=== PATIENT | male | born 1975 | race Caucasian/White ===

== ENCOUNTER → 2019-12-20 09:30 | Outpatient (CLI) | payer OTHER, SELFPAY ==
--- NOTE | 2019-12-20 09:31 | US_ITS ---
STUDY: ABDOMINAL ULTRASOUND - RIGHT UPPER QUADRANT REASON FOR VISIT: Male, 44 years old RUQ PAIN ON AND OFF COUPLE YEARS TECHNIQUE: Ultrasound evaluation of the right upper quadrant was performed with real-time and static silva-scale imaging. TECHNICAL QUALITY: Adequate. COMPARISON: None. FINDINGS: Liver: The liver measures 17.0 cm. There is increased echogenicity consistent with fatty infiltration. The bile ducts are within normal limits. There is hepatic color flow. The direction of portal flow is hepatopetal. There is no demonstrated mass lesion. Gallbladder: Normal distended gallbladder. The gallbladder wall measures 2.3 mm. There is a negative sonographic Kearns''s sign. There is no pericholecystic fluid. There are no gallstones. Common Bile Duct (C.B.D.): The common bile duct measures 6.8 mm. Pancreas: Normal size of the head, body of the pancreas. The tail portion was obscured due to overlying bowel gas. There is normal echogenicity of the pancreas. There is no demonstrated pancreatic mass or cyst. Right Kidney: Normal size of the right kidney. The right kidney measures 12.7 cm x 7 cm by 6.2 cm. Normal renal cortex. The right cortex measures 1.8 cm. There is no demonstrated renal mass or cyst. There is no right hydronephrosis. US/Gallbladder IMPRESSION: Fatty infiltration of the liver. Electronically Signed: Oleg Morillo, at 11:01 EST , Service support ,
== END ==
LOC: US 09:30
PROVIDERS: PCP Internal Medicine; Referring Provider Internal Medicine; Visit Provider Internal Medicine
DX: R10.11 Right upper quadrant pain (principal)
CPT/HCPCS: 76705

== ENCOUNTER 2020-01-05 06:49 | Emergency (ER) | payer OTHER, SELFPAY ==
[2020-01-05 06:50] VITALS: BP 139/90; PULSE 86; RESP 20; TEMP 36.9; O2SAT 98; BMI 38.5
--- NOTE | 2020-01-05 07:19 | RAD_ITS ---
STUDY: X-RAY CHEST REASON FOR EXAM: Male, 44 years old. CHEST PAIN, intermittent but hasn''t gone away since last night TECHNIQUE: 1 view COMPARISON: 03/20/2011 FINDINGS: The lungs are clear and expanded. There is no demonstrated pleural abnormality. Normal size heart. Normal mediastinum and rufus. Normal visualized pulmonary arteries. Normal visualized aortic arch and descending thoracic aorta. Normal visualized thoracic spine. Normal visualized ribs, clavicles, and shoulders. There is no demonstrated abnormality of the visualized soft tissue structures of the upper abdomen. RAD/Chest PA and Lateral IMPRESSION: Normal x-ray examination of the chest. No acute findings in the lungs Electronically Signed: Niko Berger MD at 7:52 EST Tel , Service support ,
--- NOTE | 2020-01-05 07:19 | EKG12_ITS ---
Test Reason : CP Blood Pressure : / mmHG Vent. Rate : 089 BPM Atrial Rate : 089 BPM P-R Int : 164 ms QRS Dur : 094 ms QT Int : 360 ms P-R-T Axes : 041 -23 035 degrees QTc Int : 438 ms Normal sinus rhythm Normal ECG Confirmed by DEAN ALONZO ([id number]), staff editor ROSY VINES ([id number]) on 01/10/2020 3:57:54 PM Referred By: KUNAL Confirmed By:DEAN ALONZO
--- NOTE | 2020-01-05 07:20 | ED.VIS.CHEST ---
History of Present Illness Chief Complaint: Chest Pain Informant: Patient Onset: Month(s) Activity at onset: - - more often at end of the workday/at night; never in the morning, like now Timing: Intermittent, Lasts - hrs Quality: Aching Location: - - lower mid-chest and epigastrium, radiating into mid-back Current Severity: Moderate Maximum Severity: Moderate Worsened By: Nothing, Eating - seems to get worse after I've had a couple meals or things to eat. Not Worsened By: Exertion, Movement of Arm, Movement of Torso, Palpation, Breathing, Coughing Narrative: Patient has been having the symptoms for months. Has been on Nexium 20 mg daily for a long time for reflux. States he gets these symptoms often at night and routinely takes Tums before going to bed every night, which she did last night but woke up with the discomfort persistent this morning which is unusual. He states usually in the morning when he wakes up, it is gone and does not return until later in the day but he does have it most days. He saw his doctor for this and for the past 2 to 3 weeks as a result, has been on Nexium 40 mg, double dosing. He has noticed no difference. He had an outpatient ultrasound of his gallbladder also that turned out negative, that was done here. He has a history of Crohn's disease, he does not feel like he is experiencing a flareup right now. He usually gets pain down in his right lower quadrant and increased stool with some blood, he has had none of that. He has been having normal bowel movements usually twice daily, and no blood. Formed stool. No melena. He has been taking a bit of Aleve lately, but it is for the pain he presents with, occasionally it helps him most of the time it does not. Patient does not have any pain radiating into his jaw or arms, but states he has had some heaviness in his arms off and on intermittently for months, and also has a history of bulging disks in his neck. CVD Risk Factors: Hypercholesterolemia, Family History 1' </=55. Negative for: Hypertension, Diabetes, Smoking PE Risk Factors: Negative for: Recent Travel/Surgery, Recenet Immobilization, Prior DVT or PE, Cancer, OCP + Smoking + >/=35 - Past Medical History (1) History of Crohn's disease Status: Chronic (2) History of arthritis Status: Chronic (3) History of gastroesophageal reflux (GERD) Status: Chronic (4) Hypertriglyceridemia Status: Chronic (5) Negative Cardiac Cath 2008 Status: Chronic (6) DDD (degenerative disc disease), cervical Status: Chronic Past Medical History - Allergies and Home Meds Allergies/Adverse Reactions: Allergies azsan Allergy (Uncoded 01/05/20 07:33) Anaphylaxis Primary Care Physician: Diana Weston DO [Primary Care Provider] - Lives: Spouse/ Significant Other Smoking Status: Never smoker Alcohol: None Review of Systems General: Denies: Chills, Fever, Sweats Eyes: Denies: Visual changes - bilaterally, Diplopia ENT: Denies: Bilateral ear pain, Rhinorrhea, Sore throat Cardiovascular: Reports: Chest pain. Denies: Palpitations Respiratory: Denies: Dyspnea, Cough, Dyspnea on exertion Gastrointestinal: Reports: Abdominal pain. Denies: Nausea, Vomiting, Diarrhea, Melena, Hematochezia Genitourinary: Denies: Dysuria, Hematuria, Frequency Musculoskeletal: Reports: Neck pain - mild chronic, Back pain. Denies: Extremity Pain Skin: Denies: Rash, Wounds Neurological: Reports: Weakness - chronically intermittent BUE heaviness that is not associated w/ chest/abd sx; not dropping anything w/ hands. Denies: Headache, Numbness Physical Exam Vital Signs/Narrative: Vital Signs Temp Pulse Resp BP Pulse Ox 01/05/20 06:50 98.5 F 86 20 H 139/90 H 98 Inital Vital Signs reviewed: Yes General: Well nourished, Well developed, Obese, No Acute Distress Head: Normocephalic, Atraumatic Eyes: Perrl, EOMI ENT: Moist mucous membranes, No rhinorrhea Neck: Supple, Nontender, No lymphadenopathy, No JVD Cardiovascular: Regular rate, Regular rhythm, No murmurs, Normal S1, Normal S2 Respiratory: No distress, CTA bilaterally, Chest nontender Abdomen: Soft, Nondistended, Normal bowel sounds, Tender - epigastrium only. Negative for: Guarding, Rebound tenderness, Pulsatile mass Back: Nontender, Normal Inspection Extremities: Nontender, No edema. Negative for: Calf Tenderness Skin: Normal color, No rash, No Trauma Neurological: Alert, Oriented x3, Cranial nerves II-XII grossly intact, Normal Strength, Normal Sensation Psychological: Normal affect, Normal Mood Diagnostic/Tx/Re-eval Impressions Chest X-Ray 01/05/20 07:19 IMPRESSION: Normal x-ray examination of the chest. No acute findings in the lungs Electronically Signed: Niko Berger MD at 7:52 EST Tel , Service support , 01/05/20 07:19 Chest PA and Lateral [RAD] Stat Laboratory Results 01/05/20 01/05/20 06:55 07:19 WBC 9.1 RBC 6.04 Hgb 17.1 H Hct 51.7 MCV 85.6 MCH 28.3 MCHC 33.1 RDW Std Deviation 39.8 RDW Coeff of Dall[place] 12.9 Plt Count 334 MPV 9.7 Immature Gran % (Auto) 0.300 Neut % (Auto) 66.0 Lymph % (Auto) 18.9 L [place] % (Auto) 12.8 H Eos % (Auto) 1.4 Baso % (Auto) 0.6 Absolute Neuts (auto) 6.0 Absolute Lymphs (auto) 1.71 Nucleated RBC % 0 Sodium 139 Potassium 3.7 Chloride 105 Carbon Dioxide 31.0 Anion Gap 3 L BUN 20 H Creatinine 0.98 Estim Creat Clear Calc 94.19 Est GFR (MDRD) Af Amer 106 Est GFR (MDRD) Non-Af 88 BUN/Creatinine Ratio 20.5 H Glucose 107 H Calcium 8.7 Troponin I < 0.015 - Rhythm Strip Rhythm Strip: Sinus Rhythm Rate: 89 Ectopy: None - EKG Initial EKG Interpretation: Sinus Rhythm, No Acute Injury Pattern Prior: Unchanged Treatment: GI Cocktail - Medical Decision Making Patient was given a GI cocktail. He stated felt a little better but he could tell that the discomfort was still there. I offered him a nitroglycerin and he accepted it but before it was given he states the discomfort went away. He states he is now having some bilateral rib pain that he has had before and he feels like he can stretch it out. I do not think he is having cardiac pain. His work-up is negative. He states x-ray has seen a hiatal hernia in the past however we do not see one on his chest x-ray today. I do think that his discomfort is esophageal in nature. He states he is scheduled to see GI but it is not until February which is 2 months away, it is with Dr. Ramesh in [place]. As of recently he was doing outpatient scopes here in [facility] although he does not have a clinic here anymore. I advised the patient to call and inquire, as I think an EGD could possibly diagnose the issues he has been having and I think this is the right consumer experience consultant to see. In the meantime I advised he follow-up with his PCP, as if they wanted to try medications for esophageal spasm such as calcium channel blockers, that could also be attempted. Patient is comfortable going home with this plan. ED Disposition - Plan for ED Patient: Disposition: Home or Assisted Living Diagnosis: Non-cardiac chest pain Instructions: CHEST PAIN, NonCardiac Referrals: Diana Weston, DO [Primary Care Provider] - 1 Week if not improving
[2020-01-05] MEDS: Mag Hydrox/Al Hydrox/Simeth 30 ML UDC PO (07:34)
[2020-01-05 07:42] LABS: Anion Gap 3 (5-15); BUN 20 mg/dL (7-18); BUN/Creat Ratio 20.5 RATIO (10-20); Calcium,Total 8.7 mg/dL (8.5-10.1); Chloride 105 mmol/L (98-107); Creatinine, Serum 0.98 mg/dL (0.70-1.30); EST Glomerular Filtration Rate 88 mL/min (>60); Est Glom Filt Rate - Afr Amer 106 mL/min (>60); Estimated Creatinine Clearance 94.19 ml/min; Glucose 107 mg/dL (74-106); Potassium 3.7 mmol/L (3.5-5.1); Sodium Level 139 mmol/L (136-145)
[2020-01-05 07:45] LABS: Absolute Lymphocyte Count 1.71 X10^3/uL (0.83-4.51); Basophil# 0.05 X10^3/uL; Basophil% 0.6 % (0-1); Eosinophil# 0.13 X10^3/uL; Eosinophils% 1.4 % (0-5); Hematocrit 51.7 % (40-54); Hemoglobin 17.1 g/dL (13.0-16.5); Lymphocyte # 1.71 X10^3/ul (4.0); Lymphocyte % 18.9 % (19-41); Mean Corp Hgb Conc 33.1 g/dL (32-36); Mean Corpuscular Hgb 28.3 pg (27.0-32.0); Mean Corpuscular Volume 85.6 fL (80-94); Mean Platelet Vol. 9.7 fl (6.2-12.0); Monocyte# 1.16 X10^3/uL; Monocyte% 12.8 % (0-10); NRBC Flagged by Analyzer 0 % (0-5); Neutrophil # 5.97 X10^3/uL (2.7-7.7); Platelet Count 334 K/mm3 (150-450); RBC Distribution Width CV 12.9 % (11.6-14.6); RBC Distribution Width SD 39.8 fl (35.1-43.9); Red Blood Count 6.04 M/mm3 (4.6-6.2); White Blood Count 9.1 K/mm3 (4.4-11.0)
[2020-01-05 07:51] VITALS: BP 116/76; PULSE 79; RESP 20; O2SAT 93
[2020-01-05 08:57] VITALS: BP 120/80; PULSE 78; RESP 17; O2SAT 92
== END 2020-01-05 08:59 | disposition home or self-care (01) ==
PROVIDERS: Emergency Provider Emergency Medicine; PCP Internal Medicine
DX: R07.89 Other chest pain (principal); E66.9 Obesity, unspecified; M50.30 Other cervical disc degeneration, unspecified cervical region; K50.90 Crohn's disease, unspecified, without complications; K21.9 Gastro-esophageal reflux disease without esophagitis; M19.90 Unspecified osteoarthritis, unspecified site; Z79.82 Long term (current) use of aspirin; Z79.899 Other long term (current) drug therapy
CPT/HCPCS: 71046; 80048; 84484; 85025; 93005; 99285; A4216

== ENCOUNTER → 2021-01-29 09:40 | Outpatient (CLI) | payer OTHER, SELFPAY ==
[2021-01-29 10:56] LABS: Luteinizing Hormone 2.6 mIU/mL; Prolactin 3.8 ng/mL
== END ==
PROVIDERS: PCP Internal Medicine; Referring Provider Nurse Practitioner Adult Health; Visit Provider Nurse Practitioner Adult Health
DX: E29.1 Testicular hypofunction (principal)
CPT/HCPCS: 36415; 83002; 84146

== ENCOUNTER 2021-02-27 08:00 | Outpatient (RCR) | payer OTHER, SELFPAY ==
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
--- NOTE | 2021-02-27 08:39 | HP.PTDCSUM ---
It has been my pleasure to treat SRINI SMALLS Jr. referred by Dr. Diana Weston DO, with the diagnosis of EXTREMTIES PARATHESIAS,BACK PAIN THORACIC- LUMBAR for a total of 4 visit(s). Discharge Date: Please see the following information for a summary of their discharge status. Subjective: Patient doing well .. intermittant parathesia Left Shoulder Pain Intensity (Out of 10): 0 % Improvement: 85 Objective/Function: POSTURE: WFL. GAIT: RECIPROCAL PATTERN. AROM: BUE WFL. MMT: /. THORACIC /LUMBAR ROM: WFL FLEXION /EXTENSION NO SYMPTOMS. BLE MMT: 03/28 Goal 1:: I with HEP Goal Progress: Goal Met Goal 2:: Imptove posture with job demands . Goal Progress: Goal Met Goal 3:: Decrease back pain by 50 % or > to improve function Goal Progress: Goal Met Goal 4:: Patient improve thoracic ROM for function of recovery Goal Progress: Goal Met Goal 5:: Improve back owestry score by 5 points or > to improve QOL Goal Progress: Goal Met Plan: D/C HEP If there are questions or concerns regarding this patient's physical therapy, please feel free to call me at [phone]. Thank you for the referral of this patient. Sincerely, Ankush Hardy, PT, Cert MDT, OCS
== END 2021-02-27 19:00 | disposition home or self-care (01) ==
LOC: PT 08:00
PROVIDERS: PCP Internal Medicine; Referring Provider Internal Medicine; Visit Provider Internal Medicine
DX: M54.5 Low back pain (principal); M54.6 Pain in thoracic spine; R20.2 Paresthesia of skin
CPT/HCPCS: 97110; 97162

== ENCOUNTER → 2021-03-12 07:15 | Outpatient (CLI) | payer OTHER, SELFPAY | PROVIDERS: PCP Internal Medicine | DX: E29.1 Testicular hypofunction (principal) | CPT/HCPCS: 36415; 84403 ==

== ENCOUNTER → 2021-03-26 07:20 | Outpatient (CLI) | payer OTHER, SELFPAY | LOC: MTLAB 07:21 | PROVIDERS: PCP Internal Medicine; Referring Provider Nurse Practitioner Adult Health; Visit Provider Nurse Practitioner Adult Health | DX: E29.1 Testicular hypofunction (principal) | CPT/HCPCS: 36415; 84403 ==

== ENCOUNTER → 2021-05-21 10:56 | Outpatient (CLI) | payer OTHER, SELFPAY ==
[2021-05-21 12:08] LABS: Erythrocyte Sedimentation Rate 9 mm/hr (0-20)
[2021-05-21 12:11] LABS: Absolute Lymphocyte Count 1.16 X10^3/uL (0.83-4.51); Absolute Neutrophil Count 5.5 X10^3/uL (2.0-7.7); Basophil# 0.06 X10^3/uL; Basophil% 0.8 % (0-1); Eosinophil# 0.09 X10^3/uL; Eosinophils% 1.1 % (0-5); Hematocrit 51.8 % (40-54); Hemoglobin 16.4 g/dL (13.0-16.5); Lymphocyte # 1.16 X10^3/ul (0.83-4.51); Lymphocyte % 14.6 % (19-41); Mean Corp Hgb Conc 31.7 g/dL (32-36); Mean Corpuscular Hgb 25.7 pg (27.0-32.0); Mean Corpuscular Volume 81.3 fL (80-94); Mean Platelet Vol. 9.5 fl (6.2-12.0); Monocyte# 1.09 X10^3/uL; Monocyte% 13.7 % (0-10); NRBC Flagged by Analyzer 0 % (0-5); Neutrophil # 5.51 X10^3/uL (2.7-7.7); Neutrophil % 69.5 % (47-70); Platelet Count 374 K/mm3 (150-450); RBC Distribution Width CV 13.3 % (11.6-14.6); RBC Distribution Width SD 38.3 fl (35.1-43.9); Red Blood Count 6.37 M/mm3 (4.6-6.2); White Blood Count 7.9 K/mm3 (4.4-11.0)
[2021-05-21 12:41] LABS: Albumin, Serum 3.6 g/dL (3.2-5.0); Anion Gap 4 (5-15); BUN 17 mg/dL (7-18); BUN/Creat Ratio 18.7 RATIO (10-20); Calcium,Total 8.7 mg/dL (8.5-10.1); Chloride 103 mmol/L (98-107); Creatinine, Serum 0.91 mg/dL (0.70-1.30); EST Glomerular Filtration Rate 95 mL/min (>60); Est Glom Filt Rate - Afr Amer 114 mL/min (>60); Glucose 87 mg/dL (74-106); Potassium 3.7 mmol/L (3.5-5.1); Sodium Level 137 mmol/L (136-145)
== END ==
PROVIDERS: PCP Internal Medicine; Referring Provider Specialist; Visit Provider Specialist
DX: Z96.651 Presence of right artificial knee joint (principal)
CPT/HCPCS: 36415; 80048; 82040; 85025; 85652; 86140

== ENCOUNTER → 2021-05-24 08:38 | Outpatient (CLI) | payer OTHER, SELFPAY ==
[2021-05-24 10:07] LABS: Synovial Fld Mononuclear WBC % 81.1 %; Synovial Fld Polynuclear WBC % 18.9 %
[2021-05-24 11:03] LABS: AUTO B FLUID DILUENT BKGD CT WBC <0.1 RBC <0.01 (W<.1,R<.01); Source / Synovial Fluid KNEE
[2021-05-24 11:04] LABS: Appearance /Synovial Fluid Sl hazy (CLEAR); Color / Synovial Fluid Yellow (Pale Yellow); Viscosity / Synovial Fluid Mod. Viscous (HIGH)
[2021-05-24 11:05] LABS: RBC /Synovial Fluid 1790 /mm3 (0)
[2021-05-24 11:53] LABS: Lymph 44 %; Monocyte /Synovial Fluid 29 %; Neutrophil 4 % (0-25); Other Cell /Synovial Fluid 23 %
[2021-05-24 11:58] LABS: Body Fluid QC Type(s) BF1Q,BF2Q
[2021-05-25 12:37] LABS: Pathologist Comment Reviewed
== END ==
PROVIDERS: PCP Internal Medicine; Referring Provider Specialist; Visit Provider Specialist
DX: Z96.651 Presence of right artificial knee joint (principal)
CPT/HCPCS: 87015; 87070; 87075; 87101; 87116; 87205; 87206; 89050; 89051

== ENCOUNTER → 2021-09-06 07:58 | Outpatient (CLI) | payer OTHER, SELFPAY ==
[2021-09-06 10:51] LABS: Albumin, Serum 3.2 g/dL (3.2-5.0)
== END ==
PROVIDERS: PCP Internal Medicine; Referring Provider Specialist; Visit Provider Specialist
DX: Z01.812 Encounter for preprocedural laboratory examination (principal)
CPT/HCPCS: 36415; 82040

== ENCOUNTER → 2021-09-14 08:03 | Outpatient (CLI) | payer OTHER, SELFPAY ==
[2021-09-14 10:21] LABS: Albumin, Serum 3.4 g/dL (3.2-5.0)
== END ==
PROVIDERS: PCP Internal Medicine; Referring Provider Specialist; Visit Provider Specialist
DX: Z01.812 Encounter for preprocedural laboratory examination (principal)
CPT/HCPCS: 36415; 82040

== ENCOUNTER → 2022-04-29 | Outpatient (CLI) | payer OTHER, SELFPAY ==
--- NOTE | 2022-04-29 12:49 | US_ITS ---
STUDY: THYROID ULTRASOUND REASON FOR EXAM: Male, 47 years old. THYROMEGALY TECHNIQUE: Ultrasound evaluation of the thyroid was performed with real-time and static silva-scale imaging. COMPARISON: None. FINDINGS: RIGHT LOBE: The right lobe of the thyroid gland is enlarged and measures 5.1 cm x 1.8 cm x 2 cm. There is a homogeneous echotexture. There are no demonstrated solid, cystic or complex lesions. LEFT LOBE: The left lobe of the thyroid gland measures 4.1 cm x 1.3 cm x 1.5 cm. There is a homogeneous echotexture. There is a 5 mm x 3 mm x 3 mm cyst in the lower pole. ISTHMUS: The isthmus measures 2 mm. The regional lymph nodes are normal. US/Thyroid IMPRESSION: Mildly enlarged right lobe of the thyroid. 5 mm x 3 mm x 3 mm cyst in the lower pole of the left lobe. Electronically Signed: Oleg Morillo MD at 15:48 EDT ,
== END | disposition home or self-care (01) ==
PROVIDERS: PCP Internal Medicine; Referring Provider Internal Medicine; Visit Provider Internal Medicine
DX: E01.0 Iodine-deficiency related diffuse (endemic) goiter (principal)
CPT/HCPCS: 76536

== ENCOUNTER 2024-11-25 07:42 | Day surgery (SDC) | payer OTHER, SELFPAY ==
[2024-11-25] VITALS (9 sets, daily range): BP systolic 84–130; BP diastolic 55–83; PULSE 69–74; RESP 16; TEMP 36.2–36.6; O2SAT 93–97; BMI 37.0
--- NOTE | 2024-11-25 08:23 | PRE.ANES_ITS ---
ASA Classification* ASA Classification ASA Classification: 2 Assessment & Plan Anesthesia* Anesthesia Assessment Anesthesia Assessment: Discussed sedation and/or anesthesia options, risks, benefits, and alternatives with patient/parents/legal guardian/POA. Questions invited. The patient/parents/legal guardian/POA seems to understand and agrees to proceed with anesthesia plan. Reviewed the physical assessment, medical history, allergy history and patient home medications list prior to surgery/procedure/anesthetic and documented any changes. Performed airway and anesthesia risk assessments. Anesthesia Type Anesthesia Type: MAC Anesthesia Focused Assessment* Temperature: 97.8 F Pulse Rate: 72 Blood Pressure: 130/83 Respiratory Rate: 16 Pulse Ox: 97 Airway Assessment Mouth opens: >3 cm Mallampati Score: II Focused Labs Anesthesia Preop lab: CBC WBC 7.9 K/mm3 (4.4-11.0) 05/21/21 11:07 RBC 6.37 M/mm3 (4.6-6.2) H 05/21/21 11:07 Hgb 16.4 g/dL (13.0-16.5) 05/21/21 11:07 Hct 51.8 % (40-54) 05/21/21 11:07 Plt Count 374 K/mm3 (150-450) 05/21/21 11:07 CHEMISTRY Potassium 3.7 mmol/L (3.5-5.1) 05/21/21 11:07 Sodium 137 mmol/L (136-145) 05/21/21 11:07 BUN 17 mg/dL (7-18) 05/21/21 11:07 Creatinine 0.91 mg/dL (0.70-1.30) 05/21/21 11:07 Glucose 87 mg/dL (74-106) 05/21/21 11:07 COAG Pre-Assessment Diagnosis/Proposed Procedure Planned Operative Procedure(s): EGD, COLONOSCOPY Anesthesia History Anesthesia History - hospital unit clerk: Anesthesia History - hospital unit clerk Hx Hospitalization No 11/19/24 13:41 Any Problems With Anesthesia No 11/19/24 13:41 Cholinesterase deficiency No 11/19/24 13:41 You/Your Family Experience No 11/19/24 13:41 fever (hyperthermia) with Relationship Recent Exposure to Contagious No 11/25/24 08:02 Disease Does patient have nerve No 11/19/24 13:41 stimulator Patient instructed to have device shut off --Does patient have Pacemaker No 11/25/24 08:02 or ICD? When Was Last Pacemaker Check QUESTION #4 FULL TEXT: You/Your Family Experience fever (hyperthermia) with Anesthesia Last Oral Intake Last Oral intake: Last Oral Intake NPO since 05:00 11/25/24 08:02 Meds taken in AM with sips of Yes 11/25/24 08:02 water? Meds patient instructed to AMLODIPINE 11/25/24 08:02 take am of surgery TAKES METOPROLOL AT HS PONV PONV - hospital unit clerk: PONV - hospital unit clerk Female No 11/19/24 13:41 HX of Motion Sickness No 11/19/24 13:41 HX of N/V After Surgery No 11/19/24 13:41 Non-Smoker Yes 11/19/24 13:41 Duration of Surgery greater No 11/19/24 13:41 than 60 minutes Number of Risk Factors 1 11/19/24 13:41 PONV Score Low Risk 11/19/24 13:41 Height & Weight Height & Weight: Anesthesia: Height & Weight Height 5 ft 10 in 11/25/24 08:02 Weight: 117 kg 11/25/24 08:02 Body Mass Index (BMI) 37.0 11/25/24 08:02 Respiratory Assessment Respiratory Assessment - hospital unit clerk: Respiratory Tract Infection Hx - hospital unit clerk Hx Respiratory Tract Infection No 11/19/24 13:41 STOP Sleep Apnea STOP Sleep Apnea - hospital unit clerk: STOP Sleep Apnea - hospital unit clerk Hx Hypertension Yes 11/19/24 13:41 Hx Sleep Apnea Yes 11/19/24 13:41 CPAP Yes 11/19/24 13:41 BIPAP No 11/19/24 13:41 Do you snore loudly (louder than talking or can be heard Do you often feel tired/ fatigued/ sleepy during daytime? Has anyone observed you stop breathing during sleep? STOP Results Positive 11/19/24 13:41 QUESTION #5 FULL TEXT : Do you snore loudly (louder than talking or can be heard through closed doors)? Tobacco Use History Tobacco Use History - hospital unit clerk: Tobacco Use History - hospital unit clerk Tobacco Use Non-smoker 05/21/21 10:56 Smoking Status Never smoker 11/19/24 13:41 Hx Tobacco Use No 11/19/24 13:41 Years Smoking Packs Smoked per Day Smoking Cessation Date was within the last 15 years Hx Smoking Cessation Date Hx Smoking Cessation Counseling Hematologic Medial History Hematologic Hx - hospital unit clerk: Hematologic Medical Hx - pulmonary nurse practitioner Hx of Blood Transfusion No 11/19/24 13:41 Hx of Transfusion in last 3 No 11/19/24 13:41 Months Date of Last Transfusion (if within last 3 months) Ever experience any problems No 11/19/24 13:41 with transfusion(s)? Specify any problems Hx of Preganancy in last 3 N/A 11/19/24 13:41 Months Nurse Filling Out Transfusion [facility] 11/19/24 13:41 & Questions: Date: 11/19/24 11/19/24 13:41 Time: 13:50 11/19/24 13:41 Patient unable to answer at this time (ie. confused, unrespo /Reproduction History /Reproductive History - hospital unit clerk: /Reproductive Hx- hospital unit clerk Hx Now Gestational Age (in weeks): EDC: Hx Hx Para Hx Section SAB PFSH Medical History Wears glasses Arthritis Back pain Dietary restriction Gastric reflux Non-smoker CPAP (continuous positive airway pressure) dependence History of stress test Pilonidal cyst Infected pilonidal cyst Hemorrhoids Acid reflux Sleep apnea Hypertension DDD (degenerative disc disease), cervical Negative Cardiac Cath 2007 Palpitations History of Crohn's disease Hypertriglyceridemia History of gastroesophageal reflux (GERD) History of arthritis Home Medications ?Medication ?Instructions ?Recorded ?Last Taken ?Type aspirin 81 mg tablet,delayed 81 mg PO DAILY 01/05/20 Unknown History release loratadine 10 mg tablet 10 mg PO DAILY 01/05/20 Unknown History metoprolol succinate 50 mg 50 mg PO DAILY 01/05/20 Unknown History tablet,extended release 24 hr cholecalciferol (vitamin D3) 50 50 mcg PO DAILY 06/26/21 Unknown History mcg (2,000 unit) capsule testosterone cypionate 100 mg/mL 100 mg IM Q2W 06/26/21 Unknown History intramuscular oil amlodipine 2.5 mg tablet 2.5 mg PO QDAY 08/26/24 11/25/24 06:00 History esomeprazole magnesium 20 mg 20 mg PO QDAY 08/26/24 Unknown History capsule,delayed release (Nexium) lisinopril 10 mg tablet 20 mg PO DAILY 08/26/24 Unknown History Allergy/AdvReac Type Severity Reaction Status Date / Time azathioprine (From Azasan) Allergy Anaphylaxis Verified 11/19/24 13:38 Family History Mother Arthritis Diabetes Hypertension High blood cholesterol Father Diabetes Heart disease High blood cholesterol Hypertension CVA (cerebral vascular accident) Surgical History History of right knee joint replacement History of colonoscopy History of surgical removal of pilonidal cyst Hx of arthroscopic knee surgery History of vasectomy Social History Smoking Status: Never smoker second hand exposure: No alcohol intake: never substance use type: does not use caffeine: Yes what type of physical activity do you participate in: none frequency: does not exercise Review of Systems (Anesthesia) ROS Narrative System reviewed and no additional complaints, except as documented.
--- NOTE | 2024-11-25 08:27 | HP.PCM_ITS ---
HPI - General General Date of Admission: 11/25/24 Date of Service: 11/25/24 HPI Narrative SRINI SMALLS, is a 49 M who presentsDONGERRY SMALLS, is a 49 M who presents to the office today for establishment with [facility] for management of Crohn's disease and encounter for screening colonoscopy. He reports medical history of CD, previously placed on azathioprine with anaphylactic reaction, and then was on Humira. He reports not taking any medication for CD for about 12 years now and he manages symptoms with diet. States that he avoids most spices, except salt/pepper, and consumes meat and vegetables. He uses Nexium daily and reports using 2 tabs of Tums every night to prevent reflux while sleeping. He denies difficulty chewing and swallowing, nausea, vomiting, abdominal pain, constipation, diarrhea, hematochezia and melena. He reports an occasional hemorrhoid, but nothing chronic. He states sometimes his BMs will slow down, but he's never constipated, going completely at least twice daily without straining or tenesmus. He reports abdominal bloating is relieved by belching or flatulence, it does not hang on to the point of discomfort. He reports that his last EGD was more than 10 years ago, had a moderate-sized hiatal hernia that was pulled down. His last colonoscopy was 10years ago and he doesn't remember specific abnormalities or findings. [facility] Medical History Wears glasses Arthritis Back pain Dietary restriction Gastric reflux Non-smoker CPAP (continuous positive airway pressure) dependence History of stress test Pilonidal cyst Infected pilonidal cyst Hemorrhoids Acid reflux Sleep apnea Hypertension DDD (degenerative disc disease), cervical Negative Cardiac Cath 2007 Palpitations History of Crohn's disease Hypertriglyceridemia History of gastroesophageal reflux (GERD) History of arthritis Home Medications ?Medication ?Instructions ?Recorded ?Last Taken ?Type aspirin 81 mg tablet,delayed 81 mg PO DAILY 01/05/20 Unknown History release loratadine 10 mg tablet 10 mg PO DAILY 01/05/20 Unknown History metoprolol succinate 50 mg 50 mg PO DAILY 01/05/20 Unknown History tablet,extended release 24 hr cholecalciferol (vitamin D3) 50 50 mcg PO DAILY 06/26/21 Unknown History mcg (2,000 unit) capsule testosterone cypionate 100 mg/mL 100 mg IM Q2W 06/26/21 Unknown History intramuscular oil amlodipine 2.5 mg tablet 2.5 mg PO QDAY 08/26/24 11/25/24 06:00 History esomeprazole magnesium 20 mg 20 mg PO QDAY 08/26/24 Unknown History capsule,delayed release (Nexium) lisinopril 10 mg tablet 20 mg PO DAILY 08/26/24 Unknown History Allergy/AdvReac Type Severity Reaction Status Date / Time azathioprine (From [facility]) Allergy Anaphylaxis Verified 11/19/24 13:38 Family History Mother Arthritis Diabetes Hypertension High blood cholesterol Father Diabetes Heart disease High blood cholesterol Hypertension CVA (cerebral vascular accident) Surgical History History of right knee joint replacement History of colonoscopy History of surgical removal of pilonidal cyst Hx of arthroscopic knee surgery History of vasectomy Social History Smoking Status: Never smoker second hand exposure: No alcohol intake: never substance use type: does not use caffeine: Yes what type of physical activity do you participate in: none frequency: does not exercise ROS Constitutional Constitutional: Denies fatigue, fever(s), poor appetite, weight gain or weight loss Gastrointestinal Gastrointestinal: Denies belching, bloating, change in bowel habits, change in stool character, chewing difficulty, coffee ground emesis, constipation, cramping, diarrhea, dyspepsia, dysphagia, early satiety, excessive flatus, fecal incontinence, heartburn, hematemesis, hematochezia, hemorrhoids, loose stools, melena, nausea, odynophagia, rectal bleeding, tenesmus, vomiting or weight changes Vital Signs Vital Signs Vital Signs: 11/25/24 08:02 11/25/24 08:02 11/25/24 08:23 Temperature 97.8 F 97.8 F Temperature Source Temporal Pulse Rate 72 72 Respiratory Rate 16 16 Respiratory Pattern Normal Blood Pressure 130/83 H 130/83 H Blood Pressure Mean 98 Blood Pressure Source Monitor Blood Pressure Position Sitting Blood Pressure Location Right Arm Pulse Ox 97 97 Oxygen Delivery Method Room Air Weight Weight: 257 lb 15.053 oz Body Mass Index (BMI) 37.0 Physical Exam Const alert, oriented x3, no apparent distress and healthy appearing General Appearance: cooperative GI normal to inspection, nondistended, normoactive bowel sounds, soft to palpation, non-tender and non-distended Percussion: normal to percussion Rectal Exam: deferred Assessment & Plan Assessment/Plan (1) Encounter for screening colonoscopy: (2) Hemorrhoids: (3) Acid reflux: QUALIFIERS: Esophagitis presence: esophagitis presence not specified Qualified Code(s): K21.9 - Gastro-esophageal reflux disease without esophagitis PLAN: Plan Assessment and Plan Assessment and Plan (1) Encounter for screening colonoscopy: Status: Acute Comment: No family history of CRC. Last colonoscopy more than 10 years ago. Plan: * colonoscopy for screening(2) History of Crohn's disease: Status: Chronic Plan: Continue management of self by diet. Notify office when frequency of flares to consider new biologic therapies. (3) Acid reflux: Status: Acute Qualifiers: Esophagitis presence: esophagitis presence not specified Qualified Code(s): K21.9 - Gastro-esophageal reflux disease without esophagitis Comment: Last EGD more than 10 years ago. Plan: Continue daily esomeprazole. Add famotidine 20mg PO qhs. HOLD Tums. * EGD to evaluate
--- NOTE | 2024-11-25 09:00 | IMM_PTH ---
PATIENT: SRINI SMALLS Jr. LOC: EN U#:[id number] AGE/SX: 49/M ROOM: RE11/25/[address]: Dr. Rizwan Glez DO : 1975 BED: DIS: 11/25/2024 SPEC #: [id number] RECD: 11/25/24 11:29 STATUS: LEYDA REMary #: [id number] EVER: 11/25/24 09:[address]: Rizwan Glez DEPT: IMMUNOHISTOCHEMISTRY RECD BY: Juan Roca ENTERED: 11/25/24 11:29 SP TYPE: IMMUNO OTHR DR: Dr. Diana Weston, Tissues: B - Gastric mucous membrane Procedures: H Pylori (initial) PHYSICIAN & INSTITUTION [place] [id number] SPECIMEN INFORMATION: Tissue Source: B- Gastric antrum biopsy Clinical Info: Encounter for screening colonoscopy, hemorrhoids, acid reflux Specimen Number: [id number] CPT code: 70651 METHODOLOGY: Deparaffinized sections of prefer/formalin-fixed tissue or PAP/DQ stained slides are incubated with monoclonal/polyclonal antibodies/oligonucleotide probes. Localization is made via biotin free immunoperoxidase method. Appropriate controls are performed and reacted as expected. Results on target cell population are indicated in the following table: RESULTS: ANTIBODY / CLONE RESULT Block B H Pylori (polyclonal) negative These tests were developed and their performance characteristics determined by [facility]. They may not have been cleared or approved by the U.S. Food and Drug Administration. The FDA has determined that such clearance or approval is not necessary. The above immunohistochemical/dualISH markers are ordered and reviewed by the Pathologist. INTERPRETATION: B. Gastric antrum, biopsy: Negative for Helicobacter pylori organisms. 11/26/2024
--- NOTE | 2024-11-25 09:00 | EGD_PTH ---
PATIENT: SRINI SMALLS Jr. LOC: EN U#:[id number] AGE/SX: 49/M ROOM: RE11/25/[address]: Dr. Rizwan Glez DO : 1975 BED: DIS: 11/25/2024 SPEC #: [id number] RECD: 11/25/24 10:34 STATUS: LEYDA DENEEN #: [id number] EVER: 11/25/24 09:[address]: Rizwan Glez DEPT: SURGICAL PATHOLOGY RECD BY: Em Jenkins ENTERED: 11/25/24 11:26 SP TYPE: EGD BIOPSY OT DR: Dr. Diana Weston DO Tissues: A - Esophagus, NOS B - Gastric mucous membrane C - Duodenum, NOS D - Ileum, NOS E - COLON BIOPSY Procedures: Special Stain Group I Surgery Specimen Level IV Alcian Blue/PAS (control) HEADER OPERATION: Colonoscopy, EGD with biopsy PRE-OP DIAGNOSIS: Encounter for screening colonoscopy, hemorrhoids, acid reflux TISSUE SUBMITTED: A- Distal esophagus biopsy, B- Gastric antrum biopsy, C- Duodenum biopsy, D- Terminal ileum biopsy, E- Random colonic biopsy MICROSCOPIC DIAGNOSIS A. Distal esophagus, biopsy: Fragments of gastroesophageal mucosa with moderate chronic inflammation and mild acute inflammation. Intestinal metaplasia (goblet cell metaplasia) not identified. See comment. B. Gastric antrum, biopsy: Moderate chronic active gastritis. See comment. C. Duodenum, biopsy: Fragments of duodenal mucosa with moderate non-specific chronic inflammation, mild acute inflammation, gastric metaplasia and villous flattening. D. Terminal ileum, biopsy: Fragments of small intestinal mucosa with non-specific chronic inflammation. E. Colon, random biopsy: Minimal acute colitis. See comment. 11/26/2024 COMMENT A. Alcian blue/PAS stain with matched control is used in the evaluation of the specimen. B. The results of immunohistochemistry for Helicobacter pylori will be reported separately ([id number]). E. Minimal cryptitis is noted. Crypt abscesses or granulomas are not seen. Correlation with clinical, endoscopic findings and appropriate follow up are necessary. MICROSCOPIC DESCRIPTION Slides are reviewed. GROSS DESCRIPTION A. Received in fixative is one container labeled with the patient's name and designated Distal esophagus biopsy. The specimen consists of two irregular fragments of light blanco soft tissue that in aggregate measure 0.8 x 0.5 x 0.1 cm. The specimen is totally submitted in one cassette. B. Received in fixative is one container labeled with the patient's name and designated Gastric antrum biopsy. The specimen consists of one irregular fragment of light blanco soft tissue that measures 0.4 x 0.3 x 0.1 cm. The specimen is totally submitted in one cassette. C. Received in fixative is one container labeled with the patient's name and designated Duodenum biopsy. The specimen consists of multiple irregular fragments of light balnco soft tissue that in aggregate measure 0.6 x 0.4 x 0.1 cm. The specimen is totally submitted in one cassette. D. Received in fixative is one container labeled with the patient's name and designated Terminal ileum biopsy. The specimen consists of multiple irregular fragments of light blanco soft tissue that in aggregate measure 0.8 x 0.5 x 0.1 cm. The specimen is totally submitted in one cassette. E. Received in fixative is one container labeled with the patient's name and designated Random colonic biopsy. The specimen consists of multiple irregular fragments of light blanco soft tissue that in aggregate measure 1.5 x 0.7 x 0.1 cm. The specimen is totally submitted in one cassette. SJ 11/25/2024 TC:2 CPT:27953v6,59296
--- NOTE | 2024-11-25 09:47 | OP.CCLET_ITS ---
11/25/2024 Diana Weston [address] [place] [address] Re : Upper GI endoscopy procedure for [facility] Dear Dr. Weston This procedure was performed on November. My impressions and recommendations are as follows: Impressions : - Non-severe chronic esophagitis with no bleeding. Biopsied. - Non-bleeding gastric ulcers with no stigmata of bleeding. Biopsied. - Granular mucosa in the duodenal bulb, in the first portion of the duodenum and in the second portion of the duodenum. Biopsied. Recommendations : - Discharge patient to home. - Resume previous diet. - Continue present medications. - Await pathology results. My findings are described in the full procedure note, which is enclosed. If I can be of further assistance, please feel free to contact me at . Sincerely, Rizwan Glez, 11/25/2024 9:46:45 AM This report has been signed electronically.
--- NOTE | 2024-11-25 09:47 | OP.EGD_ITS ---
Patient Name: Jalil Givens Procedure Date: 11/25/2024 9:14 AM Date of : 1975 Age: 49 Procedure: Upper GI endoscopy Indications: Epigastric abdominal pain, Heartburn, Suspected esophageal reflux Providers: Rizwan Glez DO Referring MD: Diana Weston Medicines: Monitored Anesthesia Care Patient Profile: This is a 49 year old male. Refer to note in patient chart for documentation of history and physical. Patient has symptoms of chronic epigastric abdominal pain and chronic heartburn. Complications: No immediate complications. Procedure: Pre-Anesthesia Assessment: - Prior to the procedure, a History and Physical was performed, and patient medications and allergies were reviewed. The patient is competent. The risks and benefits of the procedure and the sedation options and risks were discussed with the patient. All questions were answered and informed consent was obtained. Patient identification and proposed procedure were verified by the physician in the pre-procedure area. Mental Status Examination: alert and oriented. Airway Examination: normal oropharyngeal airway and neck mobility. Respiratory Examination: clear to auscultation. CV Examination: normal. Prophylactic Antibiotics: The patient does not require prophylactic antibiotics. Prior Anticoagulants: The patient has taken no anticoagulant or antiplatelet agents except for NSAID medication. ASA Grade Assessment: II - A patient with mild systemic disease. After reviewing the risks and benefits, the patient was deemed in satisfactory condition to undergo the procedure. The anesthesia plan was to use monitored anesthesia care (MAC). Immediately prior to administration of medications, the patient was re-assessed for adequacy to receive sedatives. The heart rate, respiratory rate, oxygen saturations, blood pressure, adequacy of pulmonary ventilation, and response to care were monitored throughout the procedure. The physical status of the patient was re-assessed after the procedure. After obtaining informed consent, the endoscope was passed under direct vision. Throughout the procedure, the patient's blood pressure, pulse, and oxygen saturations were monitored continuously. The Colonoscope was introduced through the mouth, and advanced to the second part of duodenum. The upper GI endoscopy was accomplished without difficulty. The patient tolerated the procedure well. Scope In: 9:23:33 AM Scope Out: 9:27:39 AM Total Procedure Duration Time 0 hours 4 minutes 6 seconds Findings: Non-severe esophagitis with no bleeding was found 38 to 40 cm from the incisors. Biopsies were taken with a cold forceps for histology. Verification of patient identification for the specimen was done. Estimated blood loss was minimal. Many non-bleeding superficial gastric ulcers with no stigmata of bleeding were found in the gastric body, in the gastric antrum, in the prepyloric region of the stomach and at the pylorus. The largest lesion was 3 mm in largest dimension. Biopsies were taken with a cold forceps for histology. Verification of patient identification for the specimen was done. Estimated blood loss was minimal. Diffuse granular mucosa was found in the duodenal bulb, in the first portion of the duodenum and in the second portion of the duodenum. Biopsies were taken with a cold forceps for histology. Verification of patient identification for the specimen was done. Estimated blood loss was minimal. A medium-sized hiatal hernia was present. Impression: - Non-severe chronic esophagitis with no bleeding. Biopsied. - Non-bleeding gastric ulcers with no stigmata of bleeding. Biopsied. - Granular mucosa in the duodenal bulb, in the first portion of the duodenum and in the second portion of the duodenum. Biopsied. Recommendation: - Discharge patient to home. - Resume previous diet. - Continue present medications. - Await pathology results. Procedure Code(s): --- Professional --- 03394, Esophagogastroduodenoscopy, flexible, transoral; with biopsy, single or multiple CPT copyright 2021 [employer]. All rights reserved. The codes documented in this report are preliminary and upon health information coder review may be revised to meet current compliance requirements. Rizwan Glez DO 11/25/2024 9:46:45 AM This report has been signed electronically. Number of Addenda: 0 Note Initiated On: 11/25/2024 9:14 AM
--- NOTE | 2024-11-25 09:51 | PCM.POST.ANE ---
Anesthesia: Postop Eval I Current Vital Signs Temperature: 97.1 F Pulse Rate: 71 Blood Pressure: 89/55 Respiratory Rate: 16 Pulse Ox: 95 Oxygen Delivery Method: Room Air Assessment Airway patent: Yes Spontaneous unlabored respirations: Yes Mental status: Awake and Calm nausea: No Vomiting: No Anesthesia Complication: No Fluid Hydration Crystalloid volume administer (ml): 60 Total IV fluid infused: 60 Progress Note Anesthesia document: Postop Eval 1 completed: Yes
--- NOTE | 2024-11-25 09:53 | OP.COLON_ITS ---
Patient Name: Jalil Givens Procedure Date: 11/25/2024 9:27 AM Date of : 1975 Age: 49 Procedure: Colonoscopy Indications: Crohn's disease of the small bowel and colon Providers: Rizwan Glze DO Referring MD: Diana Weston Medicines: Monitored Anesthesia Care Patient Profile: This is a 49 year old male. Refer to note in patient chart for documentation of history and physical. Patient has symptoms of chronic epigastric abdominal pain and chronic heartburn. Last Colonoscopy: several years ago. Complications: No immediate complications. Procedure: Pre-Anesthesia Assessment: - Prior to the procedure, a History and Physical was performed, and patient medications and allergies were reviewed. The patient is competent. The risks and benefits of the procedure and the sedation options and risks were discussed with the patient. All questions were answered and informed consent was obtained. Patient identification and proposed procedure were verified by the physician in the pre-procedure area. Mental Status Examination: alert and oriented. Airway Examination: normal oropharyngeal airway and neck mobility. Respiratory Examination: clear to auscultation. CV Examination: normal. Prophylactic Antibiotics: The patient does not require prophylactic antibiotics. Prior Anticoagulants: The patient has taken no anticoagulant or antiplatelet agents except for NSAID medication. ASA Grade Assessment: II - A patient with mild systemic disease. After reviewing the risks and benefits, the patient was deemed in satisfactory condition to undergo the procedure. The anesthesia plan was to use monitored anesthesia care (MAC). Immediately prior to administration of medications, the patient was re-assessed for adequacy to receive sedatives. The heart rate, respiratory rate, oxygen saturations, blood pressure, adequacy of pulmonary ventilation, and response to care were monitored throughout the procedure. The physical status of the patient was re-assessed after the procedure. After I obtained informed consent, the scope was passed under direct vision. Throughout the procedure, the patient's blood pressure, pulse, and oxygen saturations were monitored continuously. The Colonoscope was introduced through the anus and advanced to the terminal ileum. The colonoscopy was performed without difficulty. The patient tolerated the procedure well. The quality of the bowel preparation was adequate. The terminal ileum, ileocecal valve, appendiceal orifice, and rectum were photographed. Scope In: 9:29:26 AM Scope Withdrawal Time 0 hours 8 minutes 47 seconds Scope Out: 9:40:55 AM Total Procedure Duration Time 0 hours 11 minutes 29 seconds Findings: The perianal and digital rectal examinations were normal. A few small-mouthed diverticula were found in the recto-sigmoid colon, sigmoid colon and descending colon. There was no evidence of diverticular bleeding. The Simple Endoscopic Score for Crohn's Disease was determined based on the endoscopic appearance of the mucosa in the following segments: - Ileum: Findings include ulcers greater than 2 cm in size, greater than 30% ulcerated surfaces, 50-75% of surfaces affected and a single narrowing that can be passed. Segment score: 9. - Right Colon: Findings include no ulcers present, no ulcerated surfaces, no affected surfaces, no narrowings and no ulcers present, no ulcerated surfaces, no affected surfaces and no narrowings. Segment score: 0. - Transverse Colon: Findings include aphthous ulcers less than 0.5 cm in size, less than 10% ulcerated surfaces, less than 50% of surfaces affected, no narrowings and no ulcers present, no ulcerated surfaces, no affected surfaces and no narrowings. Segment score: 3. - Left Colon: Findings include large ulcers 0.5-2 cm in size, less than 10% ulcerated surfaces, less than 50% of surfaces affected, no narrowings and no ulcers present, no ulcerated surfaces, no affected surfaces and no narrowings. Segment score: 4. - Rectum: Findings include no ulcers present, no ulcerated surfaces, no affected surfaces, no narrowings and no ulcers present, no ulcerated surfaces, no affected surfaces and no narrowings. Segment score: 0. - Total SES-CD aggregate score: 16. Biopsies were taken with a cold forceps for histology. Verification of patient identification for the specimen was done. Estimated blood loss was minimal. Patchy inflammation characterized by congestion (edema), erythema, friability and aphthous ulcerations was found [Site]. The inflammation was moderate in severity. Biopsies were taken with a cold forceps for histology. Verification of patient identification for the specimen was done. Estimated blood loss was minimal. Impression: - Mild diverticulosis in the recto-sigmoid colon, in the sigmoid colon and in the descending colon. There was no evidence of diverticular bleeding. - Simple Endoscopic Score for Crohn's Disease: 16, mucosal inflammatory changes secondary to Crohn's disease. Biopsied. - Ileitis. Inflammation was found. This was moderate in severity. Biopsied. Recommendation: - Discharge patient to home. - Resume previous diet. - Continue present medications. - Await pathology results. - Repeat colonoscopy in 2 years for surveillance. Procedure Code(s): --- Professional --- 20178, Colonoscopy, flexible; with biopsy, single or multiple CPT copyright 2021 [employer]. All rights reserved. The codes documented in this report are preliminary and upon geophysical support specialist review may be revised to meet current compliance requirements. Rizwan Glez, 11/25/2024 9:53:05 AM This report has been signed electronically. Number of Addenda: 0 Note Initiated On: 11/25/2024 9:27 AM
--- NOTE | 2024-11-25 09:53 | OP.CCLET_ITS ---
11/25/2024 Diana Weston [address] [place] [address] Re : Colonoscopy procedure for [facility] Dear Dr. Weston This procedure was performed on November. My impressions and recommendations are as follows: Impressions : - Mild diverticulosis in the recto-sigmoid colon, in the sigmoid colon and in the descending colon. There was no evidence of diverticular bleeding. - Simple Endoscopic Score for Crohn's Disease: 16, mucosal inflammatory changes secondary to Crohn's disease. Biopsied. - Ileitis. Inflammation was found. This was moderate in severity. Biopsied. Recommendations : - Discharge patient to home. - Resume previous diet. - Continue present medications. - Await pathology results. - Repeat colonoscopy in 2 years for surveillance. My findings are described in the full procedure note, which is enclosed. If I can be of further assistance, please feel free to contact me at . Sincerely, Rizwan Glez, 11/25/2024 9:53:05 AM This report has been signed electronically.
--- NOTE | 2024-11-25 11:49 | PCM.POSTANE2 ---
Anesthesia Postop Eval I Sum Postop Eval Completion status Anesthesia document: Postop Eval 1 completed: Yes Anesthesia Postop Eval I Summary Anesthesia Postop Eval I Summary: Anesthesia Postop Eval I: Assessment Summary Airway patent Yes 11/25/24 09:52 [email or web address] Spontaneous unlabored Yes 11/25/24 09:52 [email or web address] respirations Mental status Awake,Calm 11/25/24 09:52 [email or web address] nausea No 11/25/24 09:52 [email or web address] Vomiting No 11/25/24 09:52 [email or web address] Anesthesia Postop Eval I: Fluid Summary Crystalloid volume administer 60 11/25/24 09:52 [email or web address] (ml) Colloids volume administered ( ml) Blood Product volume administered (ml) Total IV fluid infused 60 11/25/24 09:52 [email or web address] Anesthesia Postop Eval I: Summary Notes Anesthesia Complication No 11/25/24 09:52 [email or web address] Anesthesia Complication Comment: Post-operative progress note Anesthesia: Postop Eval II Evaluation Mental status: Awake and Calm Pain Level: 0 nausea: No Vomiting: No Complications Anesthesia Complication: No
== END 2024-11-25 10:30 | disposition home or self-care (01) ==
LOC: EN 07:43 → AC 07:44
PROVIDERS: PCP Internal Medicine; Referring Provider Internal Medicine; Visit Provider Internal Medicine Gastroenterology
PROC: 0DJD8ZZ Inspection of Lower Intestinal Tract, Via Natural or Artificial Opening Endoscopic (ICD-10-PCS; CPT 45378; principal; 2024-11-25 08:55)
DX: Z12.11 Encounter for screening for malignant neoplasm of colon (principal); K50.90 Crohn's disease, unspecified, without complications; K21.00 Gastro-esophageal reflux disease with esophagitis, without bleeding; K64.9 Unspecified hemorrhoids; K57.30 Diverticulosis of large intestine without perforation or abscess without bleeding; K25.9 Gastric ulcer, unspecified as acute or chronic, without hemorrhage or perforation; I10 Essential (primary) hypertension; Z79.899 Other long term (current) drug therapy; K63.3 Ulcer of intestine; K29.50 Unspecified chronic gastritis without bleeding; K29.80 Duodenitis without bleeding; K31.A19 Gastric intestinal metaplasia without dysplasia, unspecified site
CPT/HCPCS: 45380; 43239; 88305; 88312; 88342; A4216; J2405

== ENCOUNTER → 2024-12-17 | Outpatient (CLI) | payer OTHER, SELFPAY ==
[2024-12-17 09:42] LABS: Erythrocyte Sedimentation Rate 16 mm/hr (0-20)
[2024-12-17 09:59] LABS: Vitamin B12 432 pg/mL (211-911)
[2024-12-17 10:14] LABS: Ferritin 20 ng/mL (26-388); Free T3 2.1 pg/mL (2.18-3.98); LDH 139 U/L (87-241); T4 Free Direct 0.68 ng/dL (0.76-1.46)
[2024-12-21 06:08] LABS: Anti-Centromere B Ab <0.2 AI (0.0-0.9); Anti-Chromatin <0.2 AI (0.0-0.9); Anti-Jo <0.2 AI (0.0-0.9); Anti-Mitochondrial AB <20.0 Units (0.0-20.0); Anti-Scleroderma-70 AB <0.2 AI (0.0-0.9); Anti-dsDNA Ab 5 IU/mL (0-9); Beef <0.10 kU/L (Class 0); Chocolate <0.10 kU/L (Class 0); Codfish <0.10 kU/L (Class 0); Corn <0.10 kU/L (Class 0); Egg, Whole <0.10 kU/L (Class 0); Milk (Cow) <0.10 kU/L (Class 0); Mussels <0.10 kU/L (Class 0); Peanut <0.10 kU/L (Class 0); Pork <0.10 kU/L (Class 0); RNP Ab 0.3 AI (0.0-0.9); SJOGREN'S Anti-SS-A test < 0.2 AI (0.0-0.9); SJOGREN'S Anti-SS-B test < 0.2 AI (0.0-0.9); Salmon <0.10 kU/L (Class 0); Shrimp <0.10 kU/L (Class 0); Smith Ab <0.2 AI (0.0-0.9); Soybean <0.10 kU/L (Class 0); Tuna <0.10 kU/L (Class 0); Vitamin D 1,25-Dihydroxy 65.9 pg/mL (24.8-81.5); Wheat <0.10 kU/L (Class 0)
[2024-12-22 11:08] LABS: ACCA 8 units (0-90); ALCA 63 units (0-60); AMCA 29 units (0-100); Albumin 3.7 g/dL (2.9-4.4); Alpha-1-Globulins 0.3 g/dL (0.0-0.4); Alpha-2-Globulins 0.9 g/dL (0.4-1.0); Angiotensin Convert Enzyme 16 U/L (14-82); Anti-Smooth Muscle ABS 19 Units (0-19); Cytoplasmic Ab (C-ANCA) <1:20 titer (Neg:<1:20); Endomysial Antibody IgA Negative (Negative); HEPATITIS B SURFACE AG Negative (Negative); Hep C Antibodies Non Reactive (Non Reactive); Hepatitis A IgM Antibody Negative (Negative); Hepatitis B Core AB IgM Negative (Negative); IgG, Quant 1044 mg/dL (603-1613); Immunoglobulin A 222 mg/dL (90-386); Immunoglobulin E 59 IU/mL (6-495); Immunoglobulin G, Subclass 1 338 mg/dL (248-810); Immunoglobulin G, Subclass 2 528 mg/dL (130-555); Immunoglobulin G, Subclass 3 58 mg/dL (15-102); Immunoglobulin G, Subclass 4 31 mg/dL (2-96); Immunoglobulin M 136 mg/dL (20-172); Perinuclear Ab (P-ANCA) <1:20 titer (Neg:<1:20); QNTFERON TB Mitogen Value > 10.00 IU/mL (.); QNTFERON TB Nil Value 0.04 IU/mL (.); QNTFERON TB1+ Ag Value 0 IU/mL (.); QNTFERON TB2+ Ag Value 0.01 IU/mL (.); QNTIFERON TB Positive Criteria Negative (Negative); gASCA 24 units (0-50); t-Transglutaminase IgA <2 U/mL (0-3)
== END | disposition home or self-care (01) ==
LOC: LAB 08:40
PROVIDERS: PCP Internal Medicine; Referring Provider Internal Medicine Gastroenterology; Visit Provider Internal Medicine Gastroenterology
DX: K50.90 Crohn's disease, unspecified, without complications (principal)
CPT/HCPCS: 36415; 80074; 82164; 82607; 82652; 82728; 82746; 82784; 82785; 82787; 83516; 83615; 84165; 84439; 84443; 84481; 85652; 86003; 86005; 86036; 86037; 86140; 86225; 86235; 86255; 86334; 86480; 86671

== ENCOUNTER → 2025-01-25 | Outpatient (CLI) | payer OTHER, SELFPAY ==
--- NOTE | 2025-01-25 09:32 | MRI_ITS ---
PROCEDURE: MR ENTEROGRAPHY ABD/PEL WITH AND WITHOUT CONTRAST REASON FOR EXAM: K50.90 - Crohn's disease, unspecified, without complications TECHNIQUE: Multisequence multiplanar MR enterography of the abdomen/pelvis was performed prior to and following the administration of IV contrast. Contrast: 24 mL Clariscan. COMPARISON: Ultrasound 12/20/2019. No prior CT or MRI is available. FINDINGS: Note that the exam is optimized for evaluation of the bowel rather than the remaining abdominopelvic viscera some of which are partially imaged on some sequences. Diffusion and dynamic T2 imaging was not performed. Note also suboptimal distention of the stomach bowel slightly limiting evaluation. Note that the perianal region is excluded from the [id number] to varying degrees on all sequences, completely excluded on many sequences. Problem specific findings/GI: There is a long segment of distal/terminal ileum extending to the ileocecal valve which demonstrates severe T2 dark wall thickening up to 10-11 mm spanning roughly 11 cm in length which demonstrates mucosal hyperemia on both early and late postcontrast imaging. Wall thickening is slightly eccentric. No bowel dilatation or appreciable/convincing adjacent mesenteric edema. No other areas of abnormal small-bowel are identified. No definite evidence of fistulization or abscess. T1 and T2 dark material layers dependently within the gastric fundus, presumably reflecting ingested material. Diverticulosis. Long segment circumferential wall thickening of the sigmoid colon, without significant hyperemia. Liver: Grossly unremarkable as imaged. Gallbladder: Grossly unremarkable. Spleen: Grossly unremarkable. Pancreas: Grossly unremarkable.. Adrenals: Grossly unremarkable.. Kidneys: Small cysts bilaterally. Lymph nodes: Grossly unremarkable. Vasculature: Grossly unremarkable. Peritoneum: Grossly unremarkable. Reproductive organs: Small posterior midline prostatic likely utricle cyst, otherwise grossly unremarkable as partially imaged. Bladder: Grossly unremarkable, though underdistended. Body wall: Grossly unremarkable. Bones: Grossly unremarkable. MRI/Enterography Abd/Pel IMPRESSION: 1. Long segment severe wall thickening and narrowing along the distal/terminal ileum extending to the ileocecal valve are consistent with the provided history of Crohn's disease. Presence of narrowing indicates possible stricture however there is no upstream dilatation to confirm this or suggest current obstruction. Signal kimberly racteristics suggest the majority of these findings reflect scarring/fibrosis, however early mucosal hyperenhancement is a lso present which may indicate mild superimposed active inflammation. No evidence of penetrating disease such as fistulization o r abscess. 2. Long segment circumferential wall thickening of the sigmoid colon without si gnificant hyperemia. This finding may indicate muscular hypertrophy, however an additional site of disease involvement or othe r underlying colonic lesion can not be excluded. Clinical follow-up such as colonoscopy recommended to exclude underlying lesion . 3. Additional description as above. Reading Location: [id number]
[2025-01-25 09:59] VITALS: BP 117/84; PULSE 70; RESP 18; O2SAT 95; BMI 37.3
[2025-01-25] MEDS: 0.9% Saline Lock 10 ML Syringe IV (10:59)
[2025-01-25] MEDS: Glucagon 1 MG/ML Syringe IV (10:59)
[2025-01-25 11:24] VITALS: BP 125/84; PULSE 84; RESP 18; O2SAT 95
== END | disposition home or self-care (01) ==
LOC: MRI 09:03
PROVIDERS: PCP Internal Medicine; Referring Provider Internal Medicine Gastroenterology; Visit Provider Internal Medicine Gastroenterology
DX: K50.90 Crohn's disease, unspecified, without complications (principal)
CPT/HCPCS: 74183; 96374; A9575; A4216; J1610

== ENCOUNTER → 2025-06-24 | Outpatient (CLI) | payer OTHER, SELFPAY ==
[2025-06-24 11:24] LABS: CRP 16.70 mg/L (0.0-3.0)
== END | disposition home or self-care (01) ==
LOC: LAB 08:31
PROVIDERS: PCP Internal Medicine; Referring Provider Student in an Organized Health Care Education/Training Program; Visit Provider Student in an Organized Health Care Education/Training Program
DX: K50.90 Crohn's disease, unspecified, without complications (principal)
CPT/HCPCS: 36415; 85652; 86140

== ENCOUNTER → 2025-06-29 | Outpatient (CLI) | payer OTHER, SELFPAY ==
[2025-07-03 02:06] LABS: Calprotectin, Stool 3830 ug/g (0-120)
== END | disposition home or self-care (01) ==
LOC: LABSPEC 13:51
PROVIDERS: PCP Internal Medicine; Referring Provider Student in an Organized Health Care Education/Training Program; Visit Provider Student in an Organized Health Care Education/Training Program
DX: K50.90 Crohn's disease, unspecified, without complications (principal)
CPT/HCPCS: 83993

== ENCOUNTER → 2025-09-27 | Outpatient (CLI) | payer OTHER, SELFPAY ==
[2025-09-27 09:16] LABS: Hematocrit 51.2 % (40-54); Hemoglobin 16.3 g/dL (13.0-16.5); Immature Granulocytes Count 0.030 X10^3/uL (0.0-0.0); Mean Corp Hgb Conc 31.8 g/dL (32-36); Mean Corpuscular Volume 80.3 fL (80-94); Mean Platelet Vol. 9.4 fl (6.2-12.0); NRBC Flagged by Analyzer 0 % (0-5); Platelet Count 402 K/mm3 (150-450); RBC Distribution Width CV 15.1 % (11.6-14.6); RBC Distribution Width SD 43.5 fl (35.1-43.9); Red Blood Count 6.38 M/mm3 (4.6-6.2); White Blood Count 8.6 K/mm3 (4.4-11.0)
[2025-09-27 10:04] LABS: AST(SGOT) 27 U/L (<=37); Alanine Aminotransfer ALT/SGPT 26 U/L (<=46); Albumin, Serum 4.0 g/dL (3.5-5.0); Alkaline Phosphatase 83 U/L (40-129); Anion Gap 9 (5-15); BUN 20 mg/dL (4-19); BUN/Creat Ratio 21.4 RATIO (10-20); CRP 22.00 mg/L (0.0-3.0); Calcium,Total 9.2 mg/dL (7.6-11.0); Carbon Dioxide 27.7 mmol/L (21.0-32.0); Chloride 102 mmol/L (98-108); Globulin 3.0 g/dL (2.2-4.2); Glucose 107 mg/dL (70-99); Potassium 4.6 mmol/L (3.3-5.1)
== END | disposition home or self-care (01) ==
LOC: LAB 08:11
PROVIDERS: PCP Internal Medicine; Referring Provider Student in an Organized Health Care Education/Training Program; Visit Provider Student in an Organized Health Care Education/Training Program
DX: K50.90 Crohn's disease, unspecified, without complications (principal)
CPT/HCPCS: 36415; 80053; 85025; 85652; 86140

== ENCOUNTER → 2025-09-29 | Outpatient (CLI) | payer OTHER, SELFPAY | END | disposition home or self-care (01) | LOC: MTLAB 09:42 | PROVIDERS: PCP Internal Medicine; Referring Provider Student in an Organized Health Care Education/Training Program; Visit Provider Student in an Organized Health Care Education/Training Program | DX: K50.90 Crohn's disease, unspecified, without complications (principal) | CPT/HCPCS: 83993 ==

== ENCOUNTER → 2025-11-22 | Outpatient (CLI) | payer OTHER, SELFPAY ==
[2025-11-22 10:31] LABS: Hematocrit 50.5 % (40-54); Hemoglobin 16.4 g/dL (13.0-16.5); Immature Granulocytes Count 0.020 X10^3/uL (0.0-0.0); Mean Corp Hgb Conc 32.5 g/dL (32-36); Mean Corpuscular Volume 79.4 fL (80-94); Mean Platelet Vol. 9.5 fl (6.2-12.0); NRBC Flagged by Analyzer 0 % (0-5); Platelet Count 401 K/mm3 (150-450); RBC Distribution Width CV 14.8 % (11.6-14.6); RBC Distribution Width SD 42.0 fl (35.1-43.9); Red Blood Count 6.36 M/mm3 (4.6-6.2); White Blood Count 6.4 K/mm3 (4.4-11.0)
[2025-11-22 11:15] LABS: AST(SGOT) 26 U/L (<=37); Alanine Aminotransfer ALT/SGPT 33 U/L (<=46); Albumin, Serum 3.8 g/dL (3.5-5.0); Alkaline Phosphatase 70 U/L (40-129); Anion Gap 10 (7-18); BUN 17 mg/dL (4-19); BUN/Creat Ratio 20.2 RATIO (10-20); Calcium,Total 8.9 mg/dL (7.6-11.0); Carbon Dioxide 26.6 mmol/L (20.0-29.0); Chloride 103 mmol/L (96-106); Globulin 2.7 g/dL (2.2-4.2); Glucose 117 mg/dL (70-99); PSA,Total- Diagnostic 2.59 ng/mL (0.00-4.00); Potassium 4.0 mmol/L (3.5-5.1); Vitamin D,25 Hydroxy 37.6 ng/mL (30-100)
== END | disposition home or self-care (01) ==
LOC: CIMLAB 09:07
PROVIDERS: PCP Internal Medicine; Referring Provider Internal Medicine; Visit Provider Internal Medicine
DX: Z51.81 Encounter for therapeutic drug level monitoring (principal); E11.9 Type 2 diabetes mellitus without complications; E55.9 Vitamin D deficiency, unspecified
CPT/HCPCS: 36415; 80053; 82306; 83036; 84153; 84402; 84443; 85025